=== PATIENT | female | born 1965 | race Caucasian/White ===

== ENCOUNTER 2019-05-03 04:30 | Emergency (ER) | payer MEDICARE, OTHER ==
[~2019-05-03] VITALS: Ht 144.8 cm; Wt 60.9 kg
[~2019-05-03 04:30] MED LIST: CARV3.1260 PO; CITA10TA5 PO; COU3 PO; FURO40TA4 PO; HYDR-4011 PO; NITR0.4T39 SL; PANT40TA4 PO; SPIR25TA PO
[2019-05-03 04:35] VITALS: Ht 144.8 cm; Wt 60.9 kg
[2019-05-03] MEDS ORDERED: KETOROLAC 30 MG INJ IV STA (06:39)
--- NOTE | 2019-05-03 07:06 | ERD ---
ER Documentation Chief Complaint Chief Complaint L ARM PAIN X'S 2 DAY HPI Patient is a 53-year-old female with atrial for ablation, previous stroke, and cardiac disease who presents with left arm pain. She said that the pain started in her left upper arm yesterday. Last night it was worse. She tried Wallback for pain. She denies chest pain or shortness of breath. The pain comes and goes. It started 3 years ago after she had her surgery and is worse when she does exercise. She has been dealing with this for the past 3 years. Upon review of old medical records this is the patient's sixth visit to the ER since 2015. Her primary doctor is Dr. Fely Loredo and her heeler is Dr. Mei. ROS All systems reviewed and are negative except as per history of present illness. Medications Home Meds Active Scripts Spironolactone* (Aldactone*) 25 Mg Tablet, 12.5 MG PO BID DIURETICS for 30 Days, TAB Prov:PUNEET ISBELL NP 10/29/16 Pantoprazole* (Pantoprazole*) 40 Mg Tablet.dr, 40 MG PO DAILY@06 for 30 Days Prov:PUNEET ISBELL NP 10/29/16 Furosemide* (Furosemide*) 40 Mg Tablet, 40 MG PO DAILY for 30 Days, #30 TAB Prov:PUNEET ISBELL NP 10/29/16 Warfarin Sod (Coumadin) 3 Mg Tab, 3 MG PO DAILY for 14 Days, #14 TAB Prov:PUNEET ISBELL NP 10/29/16 Reported Medications Carvedilol* (Carvedilol*) 3.125 Mg Tablet, 3.125 MG PO BID, #60 TAB 10/16/16 Citalopram Hydrobromide* (Citalopram Hydrobromide*) 10 Mg Tablet, 10 MG PO DAILY, #30 TAB 10/16/16 Hydrocodone/Acetaminophen (Wallback 5-325 Tablet) 1 Each Tablet, 1 EACH PO Q6, TAB 10/16/16 Nitroglycerin* (Nitrostat*) 0.4 Mg Tab.subl, 0.4 MG SL Q5MIN PRN for CHEST PAIN, BOTTLE 07/31/16 Allergies Allergies: Coded Allergies: morphine (Verified Allergy, Unknown, 10/28/16) PMhx/Soc History of Surgery: Yes (VALVE (August)) Anesthesia Reaction: No Hx Neurological Disorder: Yes (CVA (2016)) Hx Respiratory Disorders: No Hx Cardiac Disorders: Yes (ACS, CARDIOMYOPATH, MITTRAL VALVE STENOS, MITRAL VALVE REGURGITATION) Hx Psychiatric Problems: No Hx Miscellaneous Medical Probl: No Hx Alcohol Use: No Hx Substance Use: No Hx Tobacco Use: No Smoking Status: Never smoker FmHx Family History: coronary disease Physical Exam Vitals Vital Signs Date Temp Pulse Resp B/P (MAP) Pulse Ox O2 O2 Flow FiO2 Time Delivery Rate 05/03/19 61 15 116/56 100 Room Air 06:24 (76) 05/03/19 61 16 114/57 100 Room Air 05:35 (76) 05/03/19 97.9 56 18 117/58 100 04:35 (77) Physical Exam Const: No acute distress Head: Atraumatic Eyes: Normal Conjunctiva ENT: Normal External Ears, Nose and Mouth. Neck: Full range of motion. No meningismus. Resp: Clear to auscultation bilaterally Cardio: Regular rate and rhythm, no murmurs Abd: Soft, non tender, non distended. Normal bowel sounds Skin: No petechiae or rashes Back: No midline or flank tenderness Ext: Left upper extremity pain with range of motion and palpation without signs of swelling or infection Neur: Awake and alert Psych: Normal Mood and Affect Result Diagram: 05/03/1952405/03/1925 Results 24 hrs Laboratory Tests Test 05/03/19 05:25 05/03/19 05:59 05/03/19 06:30 White Blood Count 8.1 10^3/ul Red Blood Count 4.39 10^6/ul Hemoglobin 12.5 g/dl Hematocrit 37.5 % Mean Corpuscular Volume 85.4 fl Mean Corpuscular Hemoglobin 28.5 pg Mean Corpuscular 33.3 g/dl Hemoglobin Concent Red Cell Distribution Width 15.3 % Platelet Count 241 10^3/UL Mean Platelet Volume 11.9 fl Immature Granulocytes % 0.200 % Neutrophils % 59.1 % Lymphocytes % 30.2 % Monocytes % 7.4 % Eosinophils % 2.2 % Basophils % 0.9 % Nucleated Red Blood Cells % 0.0 /100WBC Immature Granulocytes # 0.020 10^3/ul Neutrophils # 4.8 10^3/ul Lymphocytes # 2.5 10^3/ul Monocytes # 0.6 10^3/ul Eosinophils # 0.2 10^3/ul Basophils # 0.1 10^3/ul Nucleated Red Blood Cells # 0.0 10^3/ul Prothrombin Time 26.5 Sec Prothrombin Time Ratio 2.1 INR International 2.43 Normalized Ratio Activated Partial Thromboplast 37.5 Sec Time Sodium Level 142 mmol/L Potassium Level 4.0 mmol/L Chloride Level 106 mmol/L Carbon Dioxide Level 27 mmol/L Anion Gap 9 Blood Urea Nitrogen 21 mg/dl Creatinine 0.78 mg/dl Est Glomerular Filtrat > 60 mL/min Rate mL/min Glucose Level 113 mg/dl Calcium Level 9.2 mg/dl Troponin I < 0.012 ng/ml Triglycerides Level 58 mg/dl Cholesterol Level 185 mg/dl LDL Cholesterol, Calculated 116 mg/dl HDL Cholesterol 57 mg/dl Cholesterol/HDL Ratio 3.2 RATIO Bedside Glucose 97 mg/dL Urine Color STRAW Urine Clarity CLEAR Urine pH 6.0 Urine Specific [place] 1.009 Urine Ketones NEGATIVE mg/dL Urine Nitrite NEGATIVE mg/dL Urine Bilirubin NEGATIVE mg/dL Urine Urobilinogen NEGATIVE mg/dL Urine Leukocyte Esterase NEGATIVE Sean/ul Urine Microscopic RBC 1 /HPF Urine Microscopic WBC 0 /HPF Urine Hemoglobin 1+ mg/dL Urine Glucose NEGATIVE mg/dL Urine Total Protein NEGATIVE mg/dl Urine Opiates Screen Positive Urine Barbiturates Negative Urine Amphetamines Screen Negative Urine Benzodiazepines Screen Negative Urine Cocaine Screen Negative Urine Cannabinoids Negative Current Medications Medications Dose Sig/[place] Start Time Status Last (Trade) Ordered Route PRN Stop Time Admin Dose Reason Admin Ketorolac 30 mg ONCE STAT 05/03/19 DC 05/03/19 Tromethamine IV 06:39 05/03/19 06:53 (Toradol) 06:40 Procedures/MDM EKG read by me: Rate/Rhythm: Sinus bradycardia at 58 Intervals: Normal Impression: Bradycardia without ischemia CT brain negative per radiology. Chest x-ray read by radiology. Patient is a 53-year-old female who presents with left arm pain. She denies chest pain or shortness of breath. Her symptoms have been off and on for the past 3 years. She has no trauma. The patient has tenderness to palpation and movement. She was given Toradol for pain. I doubt acute coronary syndrome, pneumonia, pneumothorax, pulmonary embolism, or aortic dissection. I doubt DVT or infection. The patient will be discharged but will need to follow-up closely with the primary doctor within 24 to 48 hours. She can return sooner for any worsening symptoms. Departure Diagnosis: Primary Impression: Pain of left arm Condition: Fair Patient Instructions: Chronic Pain Referrals: Dr. Fely Loredo Additional Instructions: Call your primary care doctor TOMORROW for an appointment during the next 1-2 days.See the doctor sooner or return here if your condition worsens before your appointment time. ALEK TORRES MD May 03, 2019 07:06
[2019-05-03 08:50] VITALS: BP 100/50; PULSE 57; RESP 18
== END 2019-05-03 08:50 | disposition home or self-care (01) ==
LOC: FTE 04:30 → E/R 08:50
DX: M79.602 Pain in left arm (principal); Z79.01 Long term (current) use of anticoagulants; Z86.73 Personal history of transient ischemic attack (TIA), and cerebral infarction without residual deficits
CPT/HCPCS: 36415; 70450; 71045; 80048; 80061; 80307; 81001; 82962; 83036; 84484; 85025; 85610; 85730; 93005; 96374; 99285; J1885

== ENCOUNTER 2019-07-21 12:42 | Emergency (ER) | payer MEDICARE, OTHER ==
[~2019-07-21] VITALS: Ht 152.4 cm; Wt 60.7 kg
[~2019-07-21 12:42] MED LIST changes: +NAPR-985 PO; +OFLO5DRO46 LEFT EYE
[2019-07-21 13:01] VITALS: Ht 152.4 cm; Wt 60.7 kg
[2019-07-21 14:43] VITALS: BP 103/60; PULSE 61; RESP 18
== END 2019-07-21 14:32 | disposition home or self-care (01) ==
LOC: FTE 12:42
DX: S92.511A Displaced fracture of proximal phalanx of right lesser toe(s), initial encounter for closed fracture (principal); W22.8XXA Striking against or struck by other objects, initial encounter; Y92.9 Unspecified place or not applicable; Z79.01 Long term (current) use of anticoagulants; Z86.73 Personal history of transient ischemic attack (TIA), and cerebral infarction without residual deficits
CPT/HCPCS: 73630; 99283; L3260